=== PATIENT | female | born 1985 | race Caucasian/White ===

== ENCOUNTER 2019-06-02 23:54 | Inpatient (IN) | payer OTHER ==
[~2019-06-02] VITALS: Ht 177.8 cm; Wt 76.6 kg
[2019-06-03] VITALS (22 sets, daily range): BP systolic 84–106; BP diastolic 35–67
[2019-06-03 00:32] LABS: HEMATOCRIT 40.8 % (37.0-47.0); HEMOGLOBIN 13.3 gm/dL (12.0-15.0); MCH 26.7 pg (26.0-34.0); MCHC 32.5 g/dL (28.0-37.0); MCV 82.2 fL (80.0-100.0); MPV 8.7 fl. (7.2-11.1); NUCLEATED RBCS 0 /100WBC; PLATELET COUNT* 369 thou/uL (150-400); RBC 4.96 mil/uL (4.20-5.00); RDW-CV 14.3 % (10.5-14.5); WBC 23.2 thou/uL (4.0-11.0)
[2019-06-03 00:37] LABS: CALCIUM 8.9 mg/dL (8.5-10.1); CREATININE 1.3 mg/dL (0.6-1.3)
[2019-06-03 00:50] LABS: ALBUMIN 3.8 g/dL (3.4-5.0); TOTAL BILIRUBIN 1.4 mg/dL (<0.1-1.0); TOTAL PROTEIN 8.1 g/dL (6.4-8.2)
[2019-06-03 00:52] LABS: ACETAMINOPHEN < 2 ug/mL (10-30); ALCOHOL < 10 mg/dL (<10); SALICYLATE < 2.8 mg/dL (2.8-20.0)
[2019-06-03 01:08] LABS: BE -2.6 mmol/L (-2 to +3); PO2 80.7 mmHg (75.0-100.0)
[2019-06-03 01:12] LABS: pH 7.229 (7.340-7.450)
[2019-06-03 01:22] LABS: ABSOLUTE LYMPHOCYTES 0.7 thou/uL (0.8-5.3); ABSOLUTE MONOCYTES 0.9 thou/uL (0.0-1.2); ABSOLUTE NEUTROPHILS 21.6 thou/uL (1.6-8.1)
[2019-06-03 01:23] LABS: PLATELET ESTIMATE ADEQUATE
[2019-06-03 01:56] LABS: URINE BILIRUBIN NEGATIVE (Negative); URINE BLOOD NEGATIVE (Negative); URINE CLARITY CLEAR; URINE COLOR YELLOW; URINE GLUCOSE-RANDOM TRACE (Negative); URINE KETONES NEGATIVE (Negative); URINE LEUKOCYTES-REFLEX NEGATIVE (Negative); URINE NITRITE-REFLEX NEGATIVE (Negative); URINE PROTEIN 1+ (Negative); URINE SPECIFIC GRAVITY >= 1.030 (1.005-1.030); URINE UROBILINOGEN 0.2 E.U./dl (0.2-1.0)
[2019-06-03 02:05] LABS: AMP/METHAMP POSITIVE (Negative); BARBITURATES Negative (Negative); BENZODIAZEPINES Negative (Negative); COCAINE Negative (Negative); METHADONE Negative (Negative); OPIATES POSITIVE (Negative); PCP Negative (Negative); THC Negative (Negative)
[2019-06-03 08:41] LABS: ABSOLUTE BASOPHILS 0.1 thou/uL (0.0-0.2); ABSOLUTE LYMPHOCYTES 2.4 thou/uL (0.8-5.3); ABSOLUTE NEUTROPHILS 7.6 thou/uL (1.6-8.1); BASOPHILS 0.6 %; BE -2.8 mmol/L (-2 to +3); EOSINOPHILS 0.2 %; HEMATOCRIT 32.3 % (37.0-47.0); LYMPHOCYTES 21.9 %; MCH 27.4 pg (26.0-34.0); MCHC 34.1 g/dL (28.0-37.0); MCV 80.4 fL (80.0-100.0); MONOCYTES 8.7 %; MPV 8.3 fl. (7.2-11.1); NUCLEATED RBCS 0 /100WBC; PCO2 VENOUS 35.8 mmHg (41.0-51.0); PLATELET COUNT* 308 thou/uL (150-400); PO2 VENOUS 152.1 mmHg (35.0-45.0); POLYS 68.6 %; RBC 4.01 mil/uL (4.20-5.00); RDW-CV 14.1 % (10.5-14.5); WBC 11.1 thou/uL (4.0-11.0)
[2019-06-03 09:30] LABS: ALBUMIN 2.9 g/dL (3.4-5.0); CALCIUM 8.5 mg/dL (8.5-10.1); CREATININE 0.8 mg/dL (0.6-1.3); DIRECT BILIRUBIN 0.2 mg/dL (<0.1-0.3); POTASSIUM 3.6 mmol/L (3.5-5.1); TOTAL PROTEIN 6.2 g/dL (6.4-8.2)
--- NOTE | 2019-06-03 12:55 | EKG ---
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1985 Requested By: Jose Jara Order Number: [id number] Daina MD: Frandy Robertson Measurements Intervals [place] Rate: 75 P: 67 RI: 168 QRS: 61 QRSD: 98 T: 57 QT: 451 QTc: 504 Interpretive Statements Sinus rhythm ST elev, probable normal early repol pattern Prolonged QT interval No previous ECG available for comparison Electronically Signed On 06-03-2019 12:54:35 DIRECTOR VETERINARY by Frandy Robertson [email or web address] <ELECTRONICALLY SIGNED> By: Frandy Robertson MD, [facility] 06/03/19 1254 Frandy Robertson MD, FACC /EPI
--- NOTE | 2019-06-03 12:58 | EKG ---
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
[2019-06-04 02:07] LABS: HEPATITIS B SURFACE AG Negative (Negative); HIV-1/HIV-2 ANTIBODY Non Reactive (Non Reactive)
== END 2019-06-03 21:40 | disposition left against medical advice (07) | DRG 917 ==
LOC: M.ERS 23:54 → M.ICU 06-03 01:54 → M.TBA-ER 06-03 01:54 → M.ICU 06-03 02:36 → M.2W 06-03 14:57
PROVIDERS: Emergency Medicine; Internal Medicine; ADMIT Family Medicine
DX: T40.1X1A Poisoning by heroin, accidental (unintentional), initial encounter (principal); J96.02 Acute respiratory failure with hypercapnia; G92 Toxic encephalopathy; R65.10 Systemic inflammatory response syndrome (SIRS) of non-infectious origin without acute organ dysfunction; E86.9 Volume depletion, unspecified; E80.6 Other disorders of bilirubin metabolism; F15.10 Other stimulant abuse, uncomplicated; I95.2 Hypotension due to drugs; Z53.29 Procedure and treatment not carried out because of patient's decision for other reasons; Z28.21 Immunization not carried out because of patient refusal; Y92.89 Other specified places as the place of occurrence of the external cause